=== PATIENT | male | born 1950 | race Caucasian/White ===

== ENCOUNTER 2024-08-17 05:52 | Day surgery (SDC) | payer MEDICARE, OTHER ==
[2024-08-17] MEDS ORDERED: Lactated Ringers 1,000 ML IV ONE (06:03)
[2024-08-17] MEDS: Lactated Ringers 1,000 ML IV SCH (06:07)
[2024-08-17] MEDS: TETRACAINE 0.5% STERI-UNIT SOL OP ONE ×2 (06:29→07:13)
[2024-08-17] MEDS: Ak-Dilate OPHTHALMIC*** 0.71 ML, Cyclogyl 1% OPHTH SOL 0.71 ML, GATIFLOXACIN 0.5% OPHTH... OP SCH (06:30)
[2024-08-17] MEDS ORDERED: Lactated Ringers 1,000 ML IV SCH (06:30)
[2024-08-17 06:56] LABS: ANION GAP 10.7 MEQ/L (5-15); Creatinine 1 0.95 mg/dL (0.66-1.25); EST GLOMERULAR FILTRATION RATE 84.5 ML/MIN; Potassium 4.8 mmol/L (3.5-5.1)
[2024-08-17] MEDS ORDERED: propofoL IV ONE (07:36)
[2024-08-17] MEDS ORDERED: TRIAMCINOLONE 15 MG/ML INJ INTRAOP NR (08:00)
[2024-08-17] MEDS ORDERED: VIGAMOX/BSS 0.15% SYR IO NR (08:00)
[2024-08-17] MEDS ORDERED: Epinephrine Preservative Free 1 MG/ML INTRAOP NR (08:00)
[2024-08-17] MEDS ORDERED: DEXMEDETOMIDINE 80 MCG/20ML-NS IV NR (08:00)
[2024-08-17] MEDS ORDERED: DEXTENZA OP NR (08:00)
[2024-08-17] MEDS ORDERED: BETADINE 5% OPHTHALMIC 30 ML OP NR (08:00)
[2024-08-17 08:01] VITALS: RESP 18
[2024-08-17 08:14] VITALS: BP 126/87; PULSE 70; TEMP 97.8; O2SAT 95
[2024-08-17] MEDS ORDERED: Zofran 4 MG/2 ML VIAL IV PRN (08:30)
== END 2024-08-17 08:22 | disposition home or self-care (01) ==
LOC: SDC 05:52
PROVIDERS: ATTEND Ophthalmology
DX: H25.812 Combined forms of age-related cataract, left eye (principal); I10 Essential (primary) hypertension; E78.00 Pure hypercholesterolemia, unspecified
CPT/HCPCS: 36415; 80048; 93005; 99100; C1780; J0171; J1096; J2704; A9270-GY

== ENCOUNTER 2024-09-21 07:00 | Day surgery (SDC) | payer MEDICARE, OTHER ==
[2024-09-21] MEDS ORDERED: Lactated Ringers 1,000 ML IV ONE (07:13)
[2024-09-21] MEDS: TETRACAINE 0.5% STERI-UNIT SOL OP ONE ×2 (07:25→07:40)
[2024-09-21] MEDS: Lactated Ringers 1,000 ML IV SCH (07:25)
[2024-09-21] MEDS: Ak-Dilate OPHTHALMIC*** 0.71 ML, Cyclogyl 1% OPHTH SOL 0.71 ML, GATIFLOXACIN 0.5% OPHTH... OP SCH (07:26)
[2024-09-21] MEDS ORDERED: OMIDRIA 1-0.3% VIAL IO NR (09:00)
[2024-09-21] MEDS ORDERED: DEXMEDETOMIDINE 80 MCG/20ML-NS IV NR (09:00)
[2024-09-21] MEDS ORDERED: VIGAMOX/BSS 0.15% SYR IO NR (09:00)
[2024-09-21] MEDS ORDERED: DEXTENZA OP NR (09:00)
[2024-09-21] MEDS ORDERED: TRIAMCINOLONE 15 MG/ML INJ INTRAOP NR (09:00)
[2024-09-21] MEDS ORDERED: BETADINE 5% OPHTHALMIC 30 ML OP NR (09:00)
[2024-09-21] MEDS ORDERED: Zofran 4 MG/2 ML VIAL IV PRN (09:30)
[2024-09-21] MEDS ORDERED: propofoL IV ONE ×2 (09:57→10:34)
[2024-09-21] MEDS ORDERED: SUBLIMAZE 100 MCG/2 ML ONE (10:18)
[2024-09-21 11:04] VITALS: PULSE 69; RESP 18
[2024-09-21 11:07] VITALS: BP 131/83; TEMP 97.8; O2SAT 95
== END 2024-09-21 11:15 | disposition home or self-care (01) ==
LOC: SDC 07:00
PROVIDERS: ATTEND Ophthalmology
DX: H25.811 Combined forms of age-related cataract, right eye (principal)
CPT/HCPCS: C1780; J1096; J1097; J2704; J3010; A9270-GY